=== PATIENT | female | born 1960 | race Caucasian/White ===

== ENCOUNTER 2021-06-16 14:50 | Emergency (ER) | payer BC, OTHER ==
[2021-06-16] MEDS ORDERED: cloNIDine 0.1 MG Tab PO ONE (15:36)
--- NOTE | 2021-06-16 16:34 | EDM.PDOC ---
ED HPI GENERAL MEDICAL PROBLEM - General Chief Complaint: General Stated Complaint: HIGH BP, DIZZY Time Seen by Provider: 06/16/21 15:11 Source of Information: Reports: Patient, RN Notes Reviewed - History of Present Illness INITIAL COMMENTS - FREE TEXT/NARRATIVE: 60 yr old female comes in with some nonspecific dizziness, visual change and mild to moderate Sierra. This all started about 4 to 5 days ago. She did hit her head against the open esparza of a car 1 week ago but did not have much Sierra or other sx intially after that happened. Hx of mild Htn, on low dose 20 mg furosemide dialy for that. States her BP runs in the 120's. Also states that her wt is up about 5 lb over the last few days. - Related Data Allergies Allergy/AdvReac Type Severity Reaction Status Date / Time azithromycin AdvReac Severe Hypotension Verified 06/16/21 15:01 Home Meds: Home Meds Furosemide 20 mg PO DAILY 06/16/21 [History] Pravastatin Sodium 20 mg PO BEDTIME 06/16/21 [History] metFORMIN HCl [Metformin HCl ER] 500 mg PO BID 06/16/21 [History] Past Medical History Cardiovascular History: Reports: High Cholesterol, Hypertension Endocrine/Metabolic History: Reports: Diabetes, Type II, Obesity/BMI 30+ Social & Family History - Tobacco Use Tobacco Use Status *Q: Never Tobacco User - Caffeine Use Caffeine Use: Reports: Soda - Recreational Drug Use Recreational Drug Use: No ED ROS GENERAL - Review of Systems Review Of Systems: See Below HEENT: Reports: Vision Change. Denies: Vertigo Respiratory: Denies: Shortness of Breath, Cough Cardiovascular: Denies: Chest Pain GI/Abdominal: Denies: Abdominal Pain, Nausea, Vomiting Musculoskeletal: Denies: Neck Pain, Shoulder Pain Skin: Reports: No Symptoms Neurological: Reports: Dizziness, Headache. Denies: Numbness, Tingling, Trouble Speaking, Difficulty Walking, Weakness ED EXAM, GENERAL - Physical Exam Exam: See Below General Appearance: Alert, No Apparent Distress Eye Exam: Bilateral Eye: PERRL, Other (Very slight lag of R eye to the left checking EOM) Nose: Normal Inspection Throat/Mouth: Normal Inspection Head: Atraumatic Neck: Supple Respiratory/Chest: No Respiratory Distress, Lungs Clear, Normal Breath Sounds Cardiovascular: Regular Rate, Rhythm Extremities: No: Pedal Edema, Leg Pain Neurological: Alert, Oriented, No Motor/Sensory Deficits, Other (No drift, finger to nose nl) Course - Vital Signs Last Recorded V/S: Last Vital Signs Temp 97.9 F 06/16/21 14:57 Pulse 97 06/16/21 14:57 Resp 16 06/16/21 14:57 BP 151/97 H 06/16/21 15:43 Pulse Ox 98 06/16/21 14:57 - Orders/Labs/Meds Labs: Laboratory Tests 06/16/21 Range/Units 15:56 Sodium 143 (136-145) mEq/L Potassium 3.7 (3.5-5.1) mEq/L Chloride 105 (98-107) mEq/L Carbon Dioxide 26 (21-32) mEq/L Anion Gap 15.7 H (5-15) BUN 21 H (7-18) mg/dL Creatinine 1.7 H (0.55-1.02) mg/dL Est Cr Clr Drug Dosing 31.67 mL/min Estimated GFR (MDRD) 31 (>60) mL/min BUN/Creatinine Ratio 12.4 L (14-18) Glucose 115 H (70-99) mg/dL Calcium 9.0 (8.5-10.1) mg/dL Meds: Medications Discontinued Medications Generic Name Dose Route Start Last Admin Trade Name Grzegorz PRN Reason Stop Dose Admin Clonidine HCl 0.1 mg 06/16/21 15:36 06/16/21 15:43 Clonidine 0.1 Mg Tab PO 06/16/21 15:37 0.1 mg ONETIME ONE Administration - Re-Assessments/Exams Free Text/Narrative Re-Assessment/Exam: 06/16/21 17:37 BP mildly high on arrival, responded well to clonidine 0.1 mg PO. Sierra has mostly resolved. Feels that her vision is better but still not completely back to nl when looking to far right or far left. Have written order for outpatient MRI, Discharge instr. as documented. Departure - Departure Time of Disposition: 17:12 Disposition: Home, Self-Care 01 Condition: Fair Clinical Impression: Changes in vision Headache Qualifiers: Headache type: post-traumatic Headache chronicity pattern: acute headache Intractability: not intractable Qualified Code(s): G44.319 - Acute post- traumatic headache, not intractable - Discharge Information Referrals: Arpita Torres PA-C [Primary Care Provider] - Forms: ED Department Discharge Additional Instructions: Check weight daily for now, take an extra 20 mg furosemide early afternoon daily if weight running more than 5 lbs over baseline. Avoid salty foods as they will cause fluid retention and may elevate your BP as well. Continue to check your BP once or twice daily and keep a log. MRI of your head, Radiology will call you Friday to give you a time for that. See Arpita at the [facility] 1 to 3 days after MRI for results. Return to ED as needed if symptoms worsening in any way. Sepsis Event Note (ED) - Evaluation Sepsis Screening Result: No Definite Risk - Focused Exam Vital Signs: Vital Signs Temp Pulse Resp BP BP Pulse Ox 06/16/21 15:43 151/97 H 06/16/21 14:57 97.9 F 97 16 170/105 H 98
== END 2021-06-16 17:26 | disposition home or self-care (01) ==
LOC: JD.ED 14:50
DX: H53.8 Other visual disturbances (principal); G44.319 Acute post-traumatic headache, not intractable; E78.00 Pure hypercholesterolemia, unspecified; I10 Essential (primary) hypertension; E11.9 Type 2 diabetes mellitus without complications; E66.9 Obesity, unspecified; Z68.38 Body mass index [BMI] 38.0-38.9, adult; Z88.1 Allergy status to other antibiotic agents; Z79.84 Long term (current) use of oral hypoglycemic drugs
CPT/HCPCS: 36415; 80048; 99284; A9270; 99283